=== PATIENT | male | born 1995 | race Caucasian/White ===

== ENCOUNTER 2016-05-02 13:07 | Emergency (ER) | payer BC, OTHER, SELFPAY ==
[2016-05-02] MEDS ORDERED: LIDOCAINE 1% MDV 20ML VIAL As Ordered ONE (15:03)
[2016-05-02] MEDS ORDERED: ONDANSETRON 4 MG ORAL DISINTEGRATING TAB (S0181) As Ordered ONE (15:46)
[2016-05-02] MEDS ORDERED: DERMABOND TOPICAL SKIN ADHESIVE As Ordered ONE (15:55)
--- NOTE | 2016-05-02 16:43 | EDDOCDS ---
Physician Documentation [facility] Name: Sebastien Ocampo Age: 20 yrs Sex: Male : 1995 Arrival Date: 05/02/2016 Time: 13:07 Bed I5 / M5 Private MD: Sebastien Washington Disposition: 05/02/16 16:33 Discharged to Home/Self Care. Impression: Laceration with foreign body of right hand - multiple lacerations involving hand and fingers dorsally. , Other sprain of right index finger, Other sprain of right ring finger. - Condition is Stable. - Discharge Instructions: Dressing Change, Finger Sprain, Sutured Wound Care, [id number]. - Prescriptions for Keflex 500 mg Oral Capsule - take 1 capsule by ORAL route every 8 hours for 10 days; 30 capsule. - Medication Reconciliation, Local Pharmacy Hours form. - Follow up: Morgan Ortiz; When: Call to arrange an appointment; Reason: Recheck today's complaints. Follow up: Emergency Department; When: As needed; Reason: signs of infection. - Problem is new. - Symptoms have improved. - Notes: keep hand clean, dry and covered with dressings. keep fingers in splints. call orthopedics tomorrow for follow up this week. notify them that you need to be seen this week for a wound recheck, joint exam and repeat tendon exam. return to ER if you develop signs of infection. you had a total of 9 sutures placed (3, 2, 4-index, middle, ring) which need removal in 8-10 days. Historical: - Allergies: no known allergies; - Home Meds: 1. none - PMHx: none; - PSHx: none; - Social history: Smoking status: Patient uses tobacco products, light tobacco smoker. No barriers to communication noted, The patient speaks fluent Slovak, Speaks appropriately for age. - Family history: Not pertinent. - : The pt / caregiver states he / she is not on anticoagulants. Home medication list is obtained from the patient. - Exposure Risk Screening:: None identified. Vital Signs: 05/02 13:10 BP 121 / 64; Pulse 90; Resp 18 S; Temp 98.1(O); Pulse Ox 100% on R/A; Weight 65.77 kg / gr2 145 lbs (R); Height 6 ft. 1 in. (185.42 cm) (R); Pain 5/10; 16:27 BP 110 / 55; Pulse 78; Resp 16; Temp 97.7; Pulse Ox 99% ; Pain 5/10; jam1 13:10 Body Mass Index 19.13 (65.77 kg, 185.42 cm) gr2 MDM: 13:49 Wound Care ordered. ar2 13:50 Hand, Complete Ordered. EDMS 14:00 [facility] Payment Agreement was scanned into [employer] and attached to record. mpb 14:03 Financial registration complete. mpb 14:58 Lidocaine 10 mg/mL (1 %) 10 ml Infiltration once; to bedside ordered. ar2 15:48 Ondansetron ODT Oral Disintegrating Tablet 4 mg PO once ordered. jf3 15:54 Dermabond to bedside ordered. ar2 Administered Medications: 15:30 Drug: Lidocaine 10 ml [lidocaine 10 mg/mL (1 %) injection solution (10 mL)] {Note: jf3 given to PA for use at bedside.} Route: Infiltration; 15:48 Drug: Ondansetron ODT 4 mg [ondansetron 4 mg disintegrating tablet (1 tabs)] Route: PO; jf3 16:42 Follow up: Response: Nausea is decreased jf3 Signatures: Dispatcher [employer] EDLA Larisa Lambert RN RN [email or web address] Jorge Lui, PA-C PA-C ar2 Edgar Saravia RN RN jf3 Robert Wolf, Reg Reg mpb The chart was reviewed and I authenticate all verbal orders and agree with the evaluation and treatment provided.Attachments: 14:00 [facility] Payment Agreement mpb MTDD
--- NOTE | 2016-05-02 16:43 | EDDOCDS ---
Nurse's Notes [facility] Name: Sebastien Ocampo Age: 20 yrs Sex: Male : 1995 Arrival Date: 05/02/2016 Time: 13:07 Bed I5 / M5 Private MD: Sebastien Washignton Diagnosis: Laceration with foreign body of right hand-multiple lacerations involving hand and fingers dorsally. ;Other sprain of right index finger;Other sprain of right ring finger Presentation: 05/02 13:17 Presenting complaint: Patient states: Punched a television approximately 1 hour ago. jo3 Multiple lacerations to dorsal aspect of right hand. Adult Sepsis Screening: The patient does not have new or worsening altered mentation. Patient's respiratory rate is less than 22. Systolic blood pressure is greater than 100. Patient has a qSOFA score of 0- Negative Sepsis Screen. Suicide/Homicide risk assessment- the patient denies having any suicidal and/or homicidal ideations and does not present with any other emotional, behavioral or mental health complaints. Status: Patient is not a in service education teacher or dependent. Transition of care: patient was not received from another setting of care. 13:17 Acuity: HUMPHREY Level 3 jo3 13:17 Method Of Arrival: Walkin/Carried/Asstd jo3 Triage Assessment: 13:19 General: Appears in no apparent distress, Behavior is appropriate for age, cooperative. jo3 Pain: Pain currently is 8 out of 10 on a pain scale. HIV screening NA for this visit Offered previously. Neurological: Level of Consciousness is awake, alert, Oriented to person, place, time. Respiratory: Airway is patent Respiratory effort is even, unlabored. Derm: Multiple lacerations to right hand. Historical: - Allergies: no known allergies; - Home Meds: 1. none - PMHx: none; - PSHx: none; - Social history: Smoking status: Patient uses tobacco products, light tobacco smoker. No barriers to communication noted, The patient speaks fluent Slovenian, Speaks appropriately for age. - Family history: Not pertinent. - : The pt / caregiver states he / she is not on anticoagulants. Home medication list is obtained from the patient. - Exposure Risk Screening:: None identified. Screenin:37 Screening information is obtained from the patient. Fall risk: No risks identified. jf3 Assistance ADL's: requires no assistance with activities of daily living. Abuse/DV Screen: The patient / caregiver reports he/she is: not in a situation that causes fear, pain or injury. Nutritional screening: No deficits noted. Advance Directives: Currently, there is no health care proxy. There is no active DNR order. home support is adequate. Assessment: 13:37 General: Appears in no apparent distress, comfortable, Behavior is cooperative. Pain: jf3 Location: right hand Pain currently is 7 out of 10 on a pain scale. Neurological: Level of Consciousness is awake, alert, Oriented to person, place, time. Cardiovascular: Capillary refill < 3 seconds Heart tones S1 S2 present Chest pain is denied. Respiratory: Airway is patent Respiratory effort is even, unlabored, Respiratory pattern is regular, symmetrical, Breath sounds are clear bilaterally. Denies shortness of breath. Derm: Skin is pale, lacerations to right hand not visualized at this time. 14:30 General: Appears in no apparent distress, comfortable, Behavior is cooperative, Pt jf3 resting supine on stretcher with mother at bedside. Respirations easy and unlabored. Will continue to monitor. 15:49 General: Appears ill, Behavior is cooperative, Pt becoming pale and nauseated with jf3 being sutured by provider. Given zofran ODT, tomás donte, and crackers per provider request. 16:30 General: Appears in no apparent distress, comfortable, Behavior is cooperative, Pt jf3 right hand dressed and fingers immobilized using 2x2's with kerlix. Pt tolerated well. Respirations easy and unlabored. Bleeding controlled. Musculoskeletal: Circulation, motion, and sensation intact Capillary refill < 3 seconds Range of motion limited in right hand. 16:41 General: Appears in no apparent distress, comfortable, Behavior is cooperative. Pain: jf3 Location: right hand Pain currently is 5 out of 10 on a pain scale. Neurological: Level of Consciousness is awake, alert, Oriented to person, place, time. Cardiovascular: Capillary refill < 3 seconds Chest pain is denied. Respiratory: Airway is patent Respiratory effort is even, unlabored, Respiratory pattern is regular, symmetrical, Denies shortness of breath. Derm: Skin is pale. Vital Signs: 13:10 BP 121 / 64; Pulse 90; Resp 18 S; Temp 98.1(O); Pulse Ox 100% on R/A; Weight 65.77 kg gr2 (R); Height 6 ft. 1 in. (185.42 cm) (R); Pain 5/10; 16:27 BP 110 / 55; Pulse 78; Resp 16; Temp 97.7; Pulse Ox 99% ; Pain 5/10; jam1 13:10 Body Mass Index 19.13 (65.77 kg, 185.42 cm) gr2 Vitals: 13:10 Log In Time: May 02, 2016 at 13:10. gr2 ED Course: 13:09 Patient visited by Jaz Carter. gr2 13:09 Patient moved to Waiting gr2 13:10 Sebastien Washington MD is Private Physician. gr2 13:11 Patient visited by Jaz Carter. gr2 13:11 Patient moved to Pre RCE gr2 13:18 Triage Initiated jo3 13:20 Patient visited by Larisa Lambert RN. jo3 13:25 Patient moved to I4 / M4 jo3 13:28 Patient moved to I5 / M5 jam1 13:37 The patient / caregiver is instructed regarding the plan of care and ED course. jf3 13:42 Jorge Lui PA-C is PHCP. ar2 13:42 Anam Still MD is Attending Physician. ar2 13:42 Pt greeted and oriented to ED. Patient advised of names of staff involved in care, jam1 location of call galvan, wait times and NPO status. Patient has correct armband on for positive identification. Placed in gown. Bed in low position. Call light in reach. Side rails up X2. Adult w/ patient. Door closed. 13:44 Patient visited by Jorge Lui PA-C. ar2 14:00 [facility] Payment Agreement was scanned into [employer] and attached to record. mpb 14:50 Patient has correct armband on for positive identification. Bed in low position. Call jam1 light in reach. Side rails up X2. Door closed. 15:00 Patient visited by Pratima Brink RN. dls 15:08 Irrigation on right hand irrigated with normal saline Patient tolerated well. jf3 15:42 Patient visited by Edgar Saravia,JANE. jf3 15:49 Patient visited by Edgar Saravia,JANE. jf3 16:00 Assist provider with laceration repair. jf3 16:29 Dressings: Kerlix 4X4s applied to right hand. Aluminum finger splint applied to Patient jf3 with positive distal sensation and brisk distal capillary refill after application. 16:31 Morgan Ortiz is Referral Physician. ar2 16:32 Patient visited by Edgar Saravia,JANE. jf3 16:41 No IV's were initiated during this patient's visit. jf3 Administered Medications: 15:30 Drug: Lidocaine 10 ml [lidocaine 10 mg/mL (1 %) injection solution (10 mL)] {Note: jf3 given to PA for use at bedside.} Route: Infiltration; 15:48 Drug: Ondansetron ODT 4 mg [ondansetron 4 mg disintegrating tablet (1 tabs)] Route: PO; jf3 16:42 Follow up: Response: Nausea is decreased jf3 Order Results: There are currently no results for this order. Outcome: 16:33 Discharge ordered by Provider. ar2 16:42 Discharge Assessment: Patient awake, alert and oriented x 3. No cognitive and/or jf3 functional deficits noted. Patient verbalized understanding of disposition instructions. patient administered narcotics - no. The following High Risk Discharge criteria are identified: None. Discharged to home ambulatory, with parent. Condition: good. Discharge instructions given to patient, parents Instructed on discharge instructions, follow up and referral plans. medication usage, Demonstrated understanding of instructions, medications, Pt was receptive of discharge instructions/ teaching. No special radiology studies were completed. Property :Personal belongings accompany Pt. 16:43 Patient left the ED. jf3 Signatures: Pratima Brink, JANE RN Theresa Vincent, PLANT CUSTODIAN PLANT CUSTODIAN jam1 Larisa Lambert RN RN jo3 Jorge Lui, PA-C PA-C ar2 Jaz Carter gr2 Edgar Saravia,RN RN jf3 Robert Wolf, Reg Reg mpb MTDD
--- NOTE | 2016-05-02 20:33 | REP ---
Four view right hand series 05/02/2016 Location, trauma, multiple lacerations Comparison made with right hand series 07/06/2011 Findings: Subcutaneous air and few metallic radiodensities are seen on the ulnar aspect of the second metacarpal phalangeal joint There are also punctate densities in the subcutaneous tissues overlying the ulnar aspect of the fourth PIP joint with associated soft tissue swelling. Small punctate radiodensity overlies the ulnar aspect of the fifth middle phalanx and also represents interval change. There are two tiny punctate radiodensities along the ulnar aspect of fifth metacarpal phalangeal joint. Tiny punctate radiodensity in the region of triangulo fibrocartilage is unchanged. Impression: Retained radiopaque foreign bodies and/or superimposed debris within the right hand. The subcutaneous air and punctate radiodensities with puncture wound at the ulnar aspect of the second MCP appears acute. Also soft tissue swelling with associated radiodensities overlying the ulnar aspect of the fourth PIP joint may be acute. The two tiny radiodensities within the right fifth digit at the MCP and PIP joints is of indeterminate age and could even represent superimposed debris. No acute fracture. Signed by Clementina Lundberg MD 05/02/2016 08:25 P
--- NOTE | 2016-05-04 17:44 | EDDOCDS ---
Nurse's Notes [facility] Name: Sebastien Ocampo Age: 20 yrs Sex: Male : 1995 Arrival Date: 05/02/2016 Time: 13:07 Bed I5 / M5 Private MD: Sebastien Washington Diagnosis: Laceration with foreign body of right hand-multiple lacerations involving hand and fingers dorsally. ;Other sprain of right index finger;Other sprain of right ring finger Presentation: 05/02 13:17 Presenting complaint: Patient states: Punched a television approximately 1 hour ago. jo3 Multiple lacerations to dorsal aspect of right hand. Adult Sepsis Screening: The patient does not have new or worsening altered mentation. Patient's respiratory rate is less than 22. Systolic blood pressure is greater than 100. Patient has a qSOFA score of 0- Negative Sepsis Screen. Suicide/Homicide risk assessment- the patient denies having any suicidal and/or homicidal ideations and does not present with any other emotional, behavioral or mental health complaints. Status: Patient is not a director outpatient services or dependent. Transition of care: patient was not received from another setting of care. 13:17 Acuity: HUMPHREY Level 3 jo3 13:17 Method Of Arrival: Walkin/Carried/Asstd jo3 Triage Assessment: 13:19 General: Appears in no apparent distress, Behavior is appropriate for age, cooperative. jo3 Pain: Pain currently is 8 out of 10 on a pain scale. HIV screening NA for this visit Offered previously. Neurological: Level of Consciousness is awake, alert, Oriented to person, place, time. Respiratory: Airway is patent Respiratory effort is even, unlabored. Derm: Multiple lacerations to right hand. Historical: - Allergies: no known allergies; - Home Meds: 1. none - PMHx: none; - PSHx: none; - Social history: Smoking status: Patient uses tobacco products, light tobacco smoker. No barriers to communication noted, The patient speaks fluent Nepali, Speaks appropriately for age. - Family history: Not pertinent. - : The pt / caregiver states he / she is not on anticoagulants. Home medication list is obtained from the patient. - Exposure Risk Screening:: None identified. Screenin:37 Screening information is obtained from the patient. Fall risk: No risks identified. jf3 Assistance ADL's: requires no assistance with activities of daily living. Abuse/DV Screen: The patient / caregiver reports he/she is: not in a situation that causes fear, pain or injury. Nutritional screening: No deficits noted. Advance Directives: Currently, there is no health care proxy. There is no active DNR order. home support is adequate. Assessment: 13:37 General: Appears in no apparent distress, comfortable, Behavior is cooperative. Pain: jf3 Location: right hand Pain currently is 7 out of 10 on a pain scale. Neurological: Level of Consciousness is awake, alert, Oriented to person, place, time. Cardiovascular: Capillary refill < 3 seconds Heart tones S1 S2 present Chest pain is denied. Respiratory: Airway is patent Respiratory effort is even, unlabored, Respiratory pattern is regular, symmetrical, Breath sounds are clear bilaterally. Denies shortness of breath. Derm: Skin is pale, lacerations to right hand not visualized at this time. 14:30 General: Appears in no apparent distress, comfortable, Behavior is cooperative, Pt jf3 resting supine on stretcher with mother at bedside. Respirations easy and unlabored. Will continue to monitor. 15:49 General: Appears ill, Behavior is cooperative, Pt becoming pale and nauseated with jf3 being sutured by provider. Given zofran ODT, tomás donte, and crackers per provider request. 16:30 General: Appears in no apparent distress, comfortable, Behavior is cooperative, Pt jf3 right hand dressed and fingers immobilized using 2x2's with kerlix. Pt tolerated well. Respirations easy and unlabored. Bleeding controlled. Musculoskeletal: Circulation, motion, and sensation intact Capillary refill < 3 seconds Range of motion limited in right hand. 16:41 General: Appears in no apparent distress, comfortable, Behavior is cooperative. Pain: jf3 Location: right hand Pain currently is 5 out of 10 on a pain scale. Neurological: Level of Consciousness is awake, alert, Oriented to person, place, time. Cardiovascular: Capillary refill < 3 seconds Chest pain is denied. Respiratory: Airway is patent Respiratory effort is even, unlabored, Respiratory pattern is regular, symmetrical, Denies shortness of breath. Derm: Skin is pale. Vital Signs: 13:10 BP 121 / 64; Pulse 90; Resp 18 S; Temp 98.1(O); Pulse Ox 100% on R/A; Weight 65.77 kg gr2 (R); Height 6 ft. 1 in. (185.42 cm) (R); Pain 5/10; 16:27 BP 110 / 55; Pulse 78; Resp 16; Temp 97.7; Pulse Ox 99% ; Pain 5/10; jam1 13:10 Body Mass Index 19.13 (65.77 kg, 185.42 cm) gr2 Vitals: 13:10 Log In Time: May 02, 2016 at 13:10. gr2 ED Course: 13:09 Patient visited by Jaz Carter. gr2 13:09 Patient moved to Waiting gr2 13:10 Sebastien Washington MD is Private Physician. gr2 13:11 Patient visited by Jaz Carter. gr2 13:11 Patient moved to Pre RCE gr2 13:18 Triage Initiated jo3 13:20 Patient visited by Larisa Lambert RN. jo3 13:25 Patient moved to I4 / M4 jo3 13:28 Patient moved to I5 / M5 jam1 13:37 The patient / caregiver is instructed regarding the plan of care and ED course. jf3 13:42 Jorge Lui PA-C is PHCP. ar2 13:42 Anam Still MD is Attending Physician. ar2 13:42 Pt greeted and oriented to ED. Patient advised of names of staff involved in care, jam1 location of call galvan, wait times and NPO status. Patient has correct armband on for positive identification. Placed in gown. Bed in low position. Call light in reach. Side rails up X2. Adult w/ patient. Door closed. 13:44 Patient visited by Jorge Lui PA-C. ar2 14:00 [facility] Payment Agreement was scanned into [employer] and attached to record. mpb 14:50 Patient has correct armband on for positive identification. Bed in low position. Call jam1 light in reach. Side rails up X2. Door closed. 15:00 Patient visited by Pratima Brink RN. dls 15:08 Irrigation on right hand irrigated with normal saline Patient tolerated well. jf3 15:42 Patient visited by Edgar Saravia,JANE. jf3 15:49 Patient visited by Edgar Saravia,JANE. jf3 16:00 Assist provider with laceration repair. jf3 16:29 Dressings: Kerlix 4X4s applied to right hand. Aluminum finger splint applied to Patient jf3 with positive distal sensation and brisk distal capillary refill after application. 16:31 Morgan Ortiz is Referral Physician. ar2 16:32 Patient visited by Edgar Saravia RN. jf3 16:41 No IV's were initiated during this patient's visit. jf3 20:57 Hand, Complete Returned. EDMS 22:44 T-Sheet-- Draft Copy was scanned into [employer] and attached to record. klr 05/03 11:08 Radiology Report was scanned into [employer] and attached to record. gb Administered Medications: 05/02 15:30 Drug: Lidocaine 10 ml [lidocaine 10 mg/mL (1 %) injection solution (10 mL)] {Note: jf3 given to PA for use at bedside.} Route: Infiltration; 15:48 Drug: Ondansetron ODT 4 mg [ondansetron 4 mg disintegrating tablet (1 tabs)] Route: PO; jf3 16:42 Follow up: Response: Nausea is decreased jf3 Order Results: Radiology Order: Hand, Complete Test: Hand, Complete REASON FOR EXAMINATION: trauma, multiple lacerations; Four view right hand series 05/02/2016; ; Location, trauma, multiple lacerations; ; Comparison made with right hand series 07/06/2011; ; Findings: Subcutaneous air and few metallic radiodensities are seen on the ulnar; aspect of the second metacarpal phalangeal joint; ; There are also punctate densities in the subcutaneous tissues overlying the ulnar; aspect of the fourth PIP joint with associated soft tissue swelling. Small; punctate radiodensity overlies the ulnar aspect of the fifth middle phalanx and; also represents interval change. There are two tiny punctate radiodensities; along the ulnar aspect of fifth metacarpal phalangeal joint.; ; Tiny punctate radiodensity in the region of triangulo fibrocartilage is; unchanged.; ; Impression:; ; Retained radiopaque foreign bodies and/or superimposed debris within the right; hand. The subcutaneous air and punctate radiodensities with puncture wound at; the ulnar aspect of the second MCP appears acute.; ; Also soft tissue swelling with associated radiodensities overlying the ulnar; aspect of the fourth PIP joint may be acute.; ; The two tiny radiodensities within the right fifth digit at the MCP and PIP; joints is of indeterminate age and could even represent superimposed debris.; ; No acute fracture.; ; ; Signed by; Clementina Lundberg MD 05/02/2016 08:25 P; Outcome: 16:33 Discharge ordered by Provider. ar2 16:42 Discharge Assessment: Patient awake, alert and oriented x 3. No cognitive and/or jf3 functional deficits noted. Patient verbalized understanding of disposition instructions. patient administered narcotics - no. The following High Risk Discharge criteria are identified: None. Discharged to home ambulatory, with parent. Condition: good. Discharge instructions given to patient, parents Instructed on discharge instructions, follow up and referral plans. medication usage, Demonstrated understanding of instructions, medications, Pt was receptive of discharge instructions/ teaching. No special radiology studies were completed. Property :Personal belongings accompany Pt. 16:43 Patient left the ED. jf3 Signatures: Dispatcher [employer] EDMS Pratima Brink, JANE RN dls Theresa Ballesteros, MACHINE PRINTER HOSE MACHINE PRINTER HOSE jam1 Hazel Velazquez, Reg Reg gb Larisa Lambert RN RN jo3 Jorge Lui, PA-Bartolo PA-Bartolo ar2 Jaz Carter gr2 Edgar Saravia RN RN jf3 Robert Wolf, Reg Reg mpBhumika oCrrales Chart Complete MTDD
--- NOTE | 2016-05-04 17:44 | EDDOCDS ---
Physician Documentation [facility] Name: Sebastien Ocampo Age: 20 yrs Sex: Male : 1995 Arrival Date: 05/02/2016 Time: 13:07 Bed I5 / M5 Private MD: Sebastien Washington Disposition: 05/02/16 16:33 Discharged to Home/Self Care. Impression: Laceration with foreign body of right hand - multiple lacerations involving hand and fingers dorsally. , Other sprain of right index finger, Other sprain of right ring finger. - Condition is Stable. - Discharge Instructions: Dressing Change, Finger Sprain, Sutured Wound Care, [id number]. - Prescriptions for Keflex 500 mg Oral Capsule - take 1 capsule by ORAL route every 8 hours for 10 days; 30 capsule. - Medication Reconciliation, Local Pharmacy Hours form. - Follow up: Morgan Ortiz; When: Call to arrange an appointment; Reason: Recheck today's complaints. Follow up: Emergency Department; When: As needed; Reason: signs of infection. - Problem is new. - Symptoms have improved. - Notes: keep hand clean, dry and covered with dressings. keep fingers in splints. call orthopedics tomorrow for follow up this week. notify them that you need to be seen this week for a wound recheck, joint exam and repeat tendon exam. return to ER if you develop signs of infection. you had a total of 9 sutures placed (3, 2, 4-index, middle, ring) which need removal in 8-10 days. Historical: - Allergies: no known allergies; - Home Meds: 1. none - PMHx: none; - PSHx: none; - Social history: Smoking status: Patient uses tobacco products, light tobacco smoker. No barriers to communication noted, The patient speaks fluent Sami, Speaks appropriately for age. - Family history: Not pertinent. - : The pt / caregiver states he / she is not on anticoagulants. Home medication list is obtained from the patient. - Exposure Risk Screening:: None identified. Vital Signs: 05/02 13:10 BP 121 / 64; Pulse 90; Resp 18 S; Temp 98.1(O); Pulse Ox 100% on R/A; Weight 65.77 kg / gr2 145 lbs (R); Height 6 ft. 1 in. (185.42 cm) (R); Pain 5/10; 16:27 BP 110 / 55; Pulse 78; Resp 16; Temp 97.7; Pulse Ox 99% ; Pain 5/10; jam1 13:10 Body Mass Index 19.13 (65.77 kg, 185.42 cm) gr2 MDM: 13:49 Wound Care ordered. ar2 13:50 Hand, Complete Ordered. EDMS 14:00 [facility] [place] Agreement was scanned into [employer] and attached to record. mpb 14:03 Financial registration complete. mpb 14:58 Lidocaine 10 mg/mL (1 %) 10 ml Infiltration once; to bedside ordered. ar2 15:48 Ondansetron ODT Oral Disintegrating Tablet 4 mg PO once ordered. jf3 15:54 Dermabond to bedside ordered. ar2 22:44 T-Sheet-- Draft Copy was scanned into [employer] and attached to record. klr 05/03 11:08 Radiology Report was scanned into [employer] and attached to record. gb Administered Medications: 05/02 15:30 Drug: Lidocaine 10 ml [lidocaine 10 mg/mL (1 %) injection solution (10 mL)] {Note: jf3 given to PA for use at bedside.} Route: Infiltration; 15:48 Drug: Ondansetron ODT 4 mg [ondansetron 4 mg disintegrating tablet (1 tabs)] Route: PO; jf3 16:42 Follow up: Response: Nausea is decreased jf3 Signatures: Dispatcher [employer] EDWA Hazel Velazquez, Reg Reg gb Larisa Lambert RN RN jo3 Jorge Lui PA-C PA-C ar2 Edgar Saravia,JANE RN jf3 Robert Wolf, Reg Reg mpb Bhumika Jimenez klr The chart was reviewed and I authenticate all verbal orders and agree with the evaluation and treatment provided.Attachments: 14:00 [facility] Payment Agreement mpb 22:44 T-Sheet-- Draft Copy klr Chart Complete MTDD
--- NOTE | 2016-05-04 17:44 | EDDOCDS ---
Physician Documentation [facility] Name: Sebastien Ocampo Age: 20 yrs Sex: Male : 1995 Arrival Date: 05/02/2016 Time: 13:07 Bed I5 / M5 Private MD: Sebastien Washington Disposition: 05/02/16 16:33 Discharged to Home/Self Care. Impression: Laceration with foreign body of right hand - multiple lacerations involving hand and fingers dorsally. , Other sprain of right index finger, Other sprain of right ring finger. - Condition is Stable. - Discharge Instructions: Dressing Change, Finger Sprain, Sutured Wound Care, [id number]. - Prescriptions for Keflex 500 mg Oral Capsule - take 1 capsule by ORAL route every 8 hours for 10 days; 30 capsule. - Medication Reconciliation, Local Pharmacy Hours form. - Follow up: Morgan Ortiz; When: Call to arrange an appointment; Reason: Recheck today's complaints. Follow up: Emergency Department; When: As needed; Reason: signs of infection. - Problem is new. - Symptoms have improved. - Notes: keep hand clean, dry and covered with dressings. keep fingers in splints. call orthopedics tomorrow for follow up this week. notify them that you need to be seen this week for a wound recheck, joint exam and repeat tendon exam. return to ER if you develop signs of infection. you had a total of 9 sutures placed (3, 2, 4-index, middle, ring) which need removal in 8-10 days. Historical: - Allergies: no known allergies; - Home Meds: 1. none - PMHx: none; - PSHx: none; - Social history: Smoking status: Patient uses tobacco products, light tobacco smoker. No barriers to communication noted, The patient speaks fluent Czech, Speaks appropriately for age. - Family history: Not pertinent. - : The pt / caregiver states he / she is not on anticoagulants. Home medication list is obtained from the patient. - Exposure Risk Screening:: None identified. Vital Signs: 05/02 13:10 BP 121 / 64; Pulse 90; Resp 18 S; Temp 98.1(O); Pulse Ox 100% on R/A; Weight 65.77 kg / gr2 145 lbs (R); Height 6 ft. 1 in. (185.42 cm) (R); Pain 5/10; 16:27 BP 110 / 55; Pulse 78; Resp 16; Temp 97.7; Pulse Ox 99% ; Pain 5/10; jam1 13:10 Body Mass Index 19.13 (65.77 kg, 185.42 cm) gr2 MDM: 13:49 Wound Care ordered. ar2 13:50 Hand, Complete Ordered. EDMS 14:00 [facility] Payment Agreement was scanned into [employer] and attached to record. mpb 14:03 Financial registration complete. mpb 14:58 Lidocaine 10 mg/mL (1 %) 10 ml Infiltration once; to bedside ordered. ar2 15:48 Ondansetron ODT Oral Disintegrating Tablet 4 mg PO once ordered. jf3 15:54 Dermabond to bedside ordered. ar2 22:44 T-Sheet-- Draft Copy was scanned into [employer] and attached to record. klr 05/03 11:08 Radiology Report was scanned into [employer] and attached to record. gb Administered Medications: 05/02 15:30 Drug: Lidocaine 10 ml [lidocaine 10 mg/mL (1 %) injection solution (10 mL)] {Note: jf3 given to PA for use at bedside.} Route: Infiltration; 15:48 Drug: Ondansetron ODT 4 mg [ondansetron 4 mg disintegrating tablet (1 tabs)] Route: PO; jf3 16:42 Follow up: Response: Nausea is decreased jf3 Signatures: Dispatcher [employer] EDPR Hazel Velazquez, Reg Reg gb Larisa Lambert RN RN jo3 Jorge Lui PA-C PA-C ar2 Edgar Saravia,JANE RN jf3 Robert Wolf, Reg Reg mpb Bhumika Jimenez klr The chart was reviewed and I authenticate all verbal orders and agree with the evaluation and treatment provided.Attachments: 14:00 [facility] Payment Agreement mpb 22:44 T-Sheet-- Draft Copy klr Chart Complete MTDD
== END 2016-05-02 16:43 | disposition home or self-care (01) ==
LOC: M ED 13:07
DX: S61.220A Laceration with foreign body of right index finger without damage to nail, initial encounter (principal); S61.222A Laceration with foreign body of right middle finger without damage to nail, initial encounter; S61.224A Laceration with foreign body of right ring finger without damage to nail, initial encounter; S63.610A Unspecified sprain of right index finger, initial encounter; S63.614A Unspecified sprain of right ring finger, initial encounter; F17.210 Nicotine dependence, cigarettes, uncomplicated; W25.XXXA Contact with sharp glass, initial encounter; Y92.019 Unspecified place in single-family (private) house as the place of occurrence of the external cause; Y93.89 Activity, other specified; Y99.9 Unspecified external cause status

== ENCOUNTER → 2017-10-18 | Outpatient (CLI) | payer MEDICAID, SELFPAY | LOC: M OUTALCOH 07:57 | DX: F11.20 Opioid dependence, uncomplicated (principal) ==

== ENCOUNTER 2017-10-24 16:00 | Outpatient (RCR) | payer SELFPAY | END 2017-11-08 | LOC: M OUTALCOH 16:00 | DX: F11.20 Opioid dependence, uncomplicated (principal); F12.20 Cannabis dependence, uncomplicated; F17.200 Nicotine dependence, unspecified, uncomplicated ==

== ENCOUNTER 2017-12-14 16:00 | Outpatient (RCR) | payer MEDICAID, SELFPAY | END 2018-01-08 | LOC: M OUTALCOH 12-16 15:00 | DX: F11.20 Opioid dependence, uncomplicated (principal); F12.20 Cannabis dependence, uncomplicated; F17.200 Nicotine dependence, unspecified, uncomplicated ==

== ENCOUNTER → 2017-12-28 | Outpatient (REF) | payer OTHER ==
[2017-12-28 13:24] LABS: BASO % 0.6 % (0.0-1.0); EOS # 0.3 10^3/uL (0.0-0.50); EOS % 4.1 % (0.0-3.0); HEMATOCRIT 46.4 % (42.0-52.0); HEMOGLOBIN 15.3 g/dl (13.5-17.5); IMMATURE GRANULOCYTE % 0.2 % (0-3.0); LYMPH # 2.7 10^3/uL (1.5-6.5); LYMPH % 41.3 % (24.0-44.0); MEAN CORPUSCULAR HEMOGLOBIN 29.9 pg (27.0-33.0); MEAN CORPUSCULAR VOLUME 90.8 fl (80.0-96.0); MONO # 0.5 10^3/uL (0.0-0.8); MONO % 7.4 % (0.0-5.0); NEUTROPHILS # 3.1 10^3/uL (1.8-7.7); NEUTROPHILS % 46.4 % (36.0-66.0); PLATELET COUNT, AUTOMATED 205 10^3/uL (150-450); RED BLOOD COUNT 5.11 10^6/uL (4.30-6.10); WHITE BLOOD COUNT 6.6 10^3/uL (4.0-10.0)
[2017-12-28 14:57] LABS: ALBUMIN 4.8 GM/DL (3.2-5.2); ALKALINE PHOSPHATASE 82 U/L (45-117); ALT/SGPT 15 U/L (12-78); ANION GAP 8 MEQ/L (8-16); AST/SGOT 11 U/L (7-37); BILIRUBIN,TOTAL 0.3 MG/DL (0.2-1.0); BLOOD UREA NITROGEN 13 MG/DL (7-18); CALCIUM LEVEL 9.1 MG/DL (8.5-10.1); CARBON DIOXIDE LEVEL 27 MEQ/L (21-32); CHLORIDE LEVEL 108 MEQ/L (98-107); CHOLESTEROL LEVEL 110 MG/DL (<200); FERRITIN 23 NG/ML (26-388); GLOMERULAR FILTRATION RATE > 60.0 (>60); GLUCOSE, FASTING 84 MG/DL (70-100); HDL CHOLESTEROL 47 MG/DL (>40); IRON (FE) 63 UG/DL (65-175); LDL CHOLESTEROL 49 MG/DL (<100); NON-HDL-C 63 MG/DL; PERCENT SATURATION 16.7 % (19.7-50.0); POTASSIUM SERUM 4.2 MEQ/L (3.5-5.1); SODIUM LEVEL 143 MEQ/L (136-145); TOTAL IRON BINDING CAPACITY 378 UG/DL (250-450); TRIGLYCERIDES LEVEL 70 MG/DL (<150)
== END ==
LOC: M SFHCPLAZ 11:53
DX: K92.1 Melena (principal); D64.9 Anemia, unspecified; Z13.220 Encounter for screening for lipoid disorders

== ENCOUNTER → 2018-01-06 | Outpatient (CLI) | payer OTHER | LOC: M RAD 08:43 | DX: K82.0 Obstruction of gallbladder (principal); Z87.442 Personal history of urinary calculi | CPT/HCPCS: 74176 ==

== ENCOUNTER 2018-01-09 14:11 | Outpatient (RCR) | payer MEDICAID, OTHER | END 2018-02-08 | LOC: M OUTALCOH 01-11 15:00 | DX: F11.20 Opioid dependence, uncomplicated (principal); F12.20 Cannabis dependence, uncomplicated; F17.200 Nicotine dependence, unspecified, uncomplicated ==

== ENCOUNTER → 2018-01-12 | Outpatient (CLI) | payer OTHER ==
[~2018-01-12] MED LIST: E-Z-GAS II EFFERVESCENT PACKET (SODIUM BICARB./CITRIC ACID/SIMETHICONE) As Ordered; E-Z-HD 98% w/w 340GM SUSP BTL As Ordered; E-Z-PAQUE 96% w/w SUSP 176GM BTL As Ordered
== END ==
LOC: M RAD 10:17
DX: K92.1 Melena (principal)
CPT/HCPCS: 74241

== ENCOUNTER → 2018-01-30 | Outpatient (REF) | payer OTHER ==
[2018-01-30 19:08] LABS: IRON (FE) 85 UG/DL (65-175)
[2018-01-30 19:08] LABS: FERRITIN 61 NG/ML (26-388)
[2018-02-02 17:40] LABS: H PYLORI SERUM QUANT IGA <9.0 units (0.0-8.9)
== END ==
LOC: M SFHCPLAZ 15:32
DX: D64.9 Anemia, unspecified (principal); K92.1 Melena
CPT/HCPCS: 83540

== ENCOUNTER 2018-02-09 16:35 | Outpatient (RCR) | payer OTHER | END 2018-03-10 | LOC: M OUTALCOH 02-13 14:00 | DX: F11.20 Opioid dependence, uncomplicated (principal); F12.20 Cannabis dependence, uncomplicated; F17.200 Nicotine dependence, unspecified, uncomplicated ==

== ENCOUNTER → 2018-04-10 | Outpatient (RCR) | payer MEDICAID | LOC: M OUTALCOH 03-23 14:12 | PROVIDERS: ATTEND Psychiatry & Neurology Psychiatry | DX: F11.20 Opioid dependence, uncomplicated (principal); F12.20 Cannabis dependence, uncomplicated; F17.200 Nicotine dependence, unspecified, uncomplicated ==

== ENCOUNTER 2018-05-08 16:00 | Outpatient (RCR) | payer MEDICAID ==
[2018-05-09] MEDS ORDERED: FLUTISP (16:54)
[2018-05-09] MEDS ORDERED: SUBO8MIS SL (16:54)
[2018-05-09] MEDS ORDERED: NICO21DI6 TOP (17:03)
== END 2018-05-11 ==
LOC: M OUTALCOH 16:00
PROVIDERS: ATTEND Psychiatry & Neurology Psychiatry
DX: F11.20 Opioid dependence, uncomplicated (principal); F12.20 Cannabis dependence, uncomplicated; F17.200 Nicotine dependence, unspecified, uncomplicated

== ENCOUNTER 2018-05-23 11:27 | Day surgery (SDC) | payer OTHER ==
[~2018-05-23] VITALS: Ht 167.6 cm; Wt 75.7 kg
[~2018-05-23 11:27] MED LIST changes: -E-Z-GAS II EFFERVESCENT PACKET (SODIUM BICARB./CITRIC ACID/SIMETHICONE) As Ordered; -E-Z-HD 98% w/w 340GM SUSP BTL As Ordered; -E-Z-PAQUE 96% w/w SUSP 176GM BTL As Ordered; +FLUTISP; +LIDOCAINE 2% INJ 100 MG/5 ML SDV (FOR ANES.) As Ordered ONE; +NICO21DI6 TOP; +NS 1,000 ML IV ONE; +SUBO8MIS SL
[2018-05-23] MEDS ORDERED: PROPOFOL 200 MG/20 ML VIAL As Ordered ONE (11:36)
--- NOTE | 2018-05-23 13:26 | ROOR ---
Patient Name: Sebastien Ocampo Procedure Date: 05/23/2018 12:46 PM Date of : 1995 Age: 22 Room: [facility] Gender: Male Note Status: Finalized Procedure: Upper GI endoscopy Indications: Iron deficiency anemia, Heme positive stool, Melena Providers: Morgan Barragan MD Referring MD: [place] RODRIGUEZ MD Requesting Provider: Medicines: Monitored Anesthesia Care Complications: No immediate complications. Procedure: Pre-Anesthesia Assessment: - Prior to the procedure, a History and Physical was performed, and patient medications and allergies were reviewed. The patient is competent. The risks and benefits of the procedure and the sedation options and risks were discussed with the patient. All questions were answered and informed consent was obtained. Patient identification and proposed procedure were verified by the physician, the nurse and the anesthesiologist in the procedure room. Mental Status Examination: alert and oriented. Airway Examination: normal oropharyngeal airway and neck mobility. Respiratory Examination: clear to auscultation. CV Examination: normal. Prophylactic Antibiotics: The patient does not require prophylactic antibiotics. Prior Anticoagulants: The patient has taken no previous anticoagulant or antiplatelet agents. ASA Grade Assessment: I - A normal, healthy patient. After reviewing the risks and benefits, the patient was deemed in satisfactory condition to undergo the procedure. The anesthesia plan was to use monitored anesthesia care (MAC). Immediately prior to administration of medications, the patient was re-assessed for adequacy to receive sedatives. The heart rate, respiratory rate, oxygen saturations, blood pressure, adequacy of pulmonary ventilation, and response to care were monitored throughout the procedure. The physical status of the patient was re-assessed after the procedure. The Endoscope was introduced through the mouth, and advanced to the second part of duodenum. The upper GI endoscopy was accomplished without difficulty. The patient tolerated the procedure well. Findings: The examined esophagus was normal. The Z-line was regular and was found 45 cm from the incisors. Patchy mild inflammation characterized by erythema and granularity was found in the gastric antrum. Biopsies were taken with a cold forceps for Helicobacter pylori testing. Verification of patient identification for the specimen was done by the physician and nurse using the patient's name, date and medical record number. Estimated blood loss was minimal. The duodenal bulb and second portion of the duodenum were normal. Biopsies for histology were taken with a cold forceps for evaluation of celiac disease. Impression: - Normal esophagus. - Z-line regular, 45 cm from the incisors. - Gastritis. Biopsied. - Normal duodenal bulb and second portion of the duodenum. Biopsied. Recommendation: - Patient has a contact number available for emergencies. The signs and symptoms of potential delayed complications were discussed with the patient. Return to normal activities tomorrow. Written discharge instructions were provided to the patient. - Resume previous diet. - Continue present medications. - Check hemoglobin and hematocrit and Iron studies in 1 month. - Return to GI clinic in [facility] (address [address], [place] [address]) in 4 -- 6 weeks. Please call GI clinic @ [phone] for apppointment date and time. - Return to primary care physician. Morgan Barragan MD Morgan Barragan MD 05/23/2018 1:26:05 PM This report has been signed electronically. Number of Addenda: 0 Note Initiated On: 05/23/2018 12:46 PM Estimated Blood Loss: Estimated blood loss was minimal.
--- NOTE | 2018-05-23 13:52 | ROOR ---
Patient Name: Sebastien Ocampo Procedure Date: 05/23/2018 12:47 PM Date of : 1995 Age: 22 Room: [facility] Gender: Male Note Status: Finalized Procedure: Colonoscopy Indications: Heme positive stool, Iron deficiency anemia Providers: Morgan Barragan MD Referring MD: [place] RODRIGUEZ MD Requesting Provider: Medicines: Monitored Anesthesia Care Complications: No immediate complications. Procedure: Pre-Anesthesia Assessment: - Prior to the procedure, a History and Physical was performed, and patient medications and allergies were reviewed. The patient is competent. The risks and benefits of the procedure and the sedation options and risks were discussed with the patient. All questions were answered and informed consent was obtained. Patient identification and proposed procedure were verified by the physician, the nurse and the anesthesiologist in the procedure room. Mental Status Examination: alert and oriented. Airway Examination: normal oropharyngeal airway and neck mobility. Respiratory Examination: clear to auscultation. CV Examination: normal. Prophylactic Antibiotics: The patient does not require prophylactic antibiotics. Prior Anticoagulants: The patient has taken no previous anticoagulant or antiplatelet agents. ASA Grade Assessment: II - A patient with mild systemic disease. After reviewing the risks and benefits, the patient was deemed in satisfactory condition to undergo the procedure. The anesthesia plan was to use monitored anesthesia care (MAC). Immediately prior to administration of medications, the patient was re-assessed for adequacy to receive sedatives. The heart rate, respiratory rate, oxygen saturations, blood pressure, adequacy of pulmonary ventilation, and response to care were monitored throughout the procedure. The physical status of the patient was re-assessed after the procedure. The Colonoscope was introduced through the anus and advanced to the terminal ileum, with identification of the appendiceal orifice and IC valve. The colonoscopy was performed without difficulty. The patient tolerated the procedure well. The quality of the bowel preparation was poor. The terminal ileum, ileocecal valve, appendiceal orifice, and rectum were photographed. Scope insertion time was 5 minutes. Scope withdrawal time was 6 minutes. The total duration of the procedure was 11 minutes. Findings: The perianal and digital rectal examinations were normal. The terminal ileum appeared normal. A large amount of semi-solid stool was found from rectum to cecum, precluding visualization. Lavage of the area was performed using a large amount of sterile water, resulting in incomplete clearance with continued poor visualization. There is no endoscopic evidence of mass or stricture in the entire colon. The retroflexed view of the distal rectum and anal verge was normal and showed no anal or rectal abnormalities. Impression: - Preparation of the colon was poor. - The examined portion of the ileum was normal. - Stool from rectum to cecum. - The distal rectum and anal verge are normal on retroflexion view. - No specimens collected. Recommendation: - Patient has a contact number available for emergencies. The signs and symptoms of potential delayed complications were discussed with the patient. Return to normal activities tomorrow. Written discharge instructions were provided to the patient. - Resume previous diet. - Continue present medications. - Check hemoglobin and hematocrit along with iron studies in 1 month. - Return to GI clinic in [facility] (address [address], [address] [address]) in 4 -- 6 weeks. Please call GI clinic @ [phone] for apppointment date and time. - Return to primary care physician. Morgan Barragan MD Morgan Barragan MD 05/23/2018 1:51:49 PM This report has been signed electronically. Number of Addenda: 0 Note Initiated On: 05/23/2018 12:47 PM Estimated Blood Loss: Estimated blood loss: none.
[2018-05-23 14:05] VITALS: BP 120/65
== END 2018-05-23 14:07 | disposition home or self-care (01) ==
LOC: M OPP 11:27
PROVIDERS: ATTEND Internal Medicine Gastroenterology
DX: D50.9 Iron deficiency anemia, unspecified (principal); K29.70 Gastritis, unspecified, without bleeding; K92.1 Melena; F17.210 Nicotine dependence, cigarettes, uncomplicated

== ENCOUNTER → 2018-05-25 | Outpatient (CLI) | payer OTHER ==
[~2018-05-25] MED LIST changes: -LIDOCAINE 2% INJ 100 MG/5 ML SDV (FOR ANES.) As Ordered ONE; -NS 1,000 ML IV ONE
--- NOTE | 2018-05-25 09:41 | REP ---
ULTRASOUND LEFT NECK SOFT TISSUES: Real-time sonographic evaluation of the left neck soft tissues performed at the site of palpable abnormality posterolaterally. The area corresponds to three non-enlarged lymph nodes with small amount of fat in their hilar regions. These measure 9 x 2 x 10 mm, 7 x 2 x 7 mm, and 9 x 3 x 4 mm. IMPRESSION: Three normal appearing lymph nodes correspond to the palpable abnormality in the posterolateral soft tissues of the left neck. Electronically Signed by Sammy Saenz MD 05/25/2018 09:56 A
== END ==
LOC: M RAD 08:21
PROVIDERS: ATTEND Family Medicine Addiction Medicine
DX: M79.9 Soft tissue disorder, unspecified (principal)

== ENCOUNTER 2018-05-26 10:58 | Outpatient (RCR) | payer MEDICAID | END 2018-06-08 | LOC: M OUTALCOH 10:58 | PROVIDERS: ATTEND Psychiatry & Neurology Psychiatry | DX: F11.20 Opioid dependence, uncomplicated (principal); F12.20 Cannabis dependence, uncomplicated; F17.200 Nicotine dependence, unspecified, uncomplicated ==

== ENCOUNTER → 2018-10-06 | Outpatient (REF) | payer OTHER, MEDICAID ==
[2018-10-06 18:00] LABS: BASO % 0.5 % (0.0-1.0); EOS # 0.1 10^3/uL (0.0-0.50); EOS % 2.3 % (0.0-3.0); HEMATOCRIT 41.6 % (42.0-52.0); HEMOGLOBIN 13.5 g/dl (13.5-17.5); LYMPH # 2.4 10^3/uL (1.5-6.5); LYMPH % 54.5 % (24.0-44.0); MEAN CORPUSCULAR HEMOGLOBIN 29.9 pg (27.0-33.0); MEAN CORPUSCULAR HGB CONC 32.5 g/dl (32.0-36.5); MEAN CORPUSCULAR VOLUME 92.2 fl (80.0-96.0); MONO # 0.3 10^3/uL (0.0-0.8); NEUTROPHILS # 1.5 10^3/uL (1.8-7.7); NEUTROPHILS % 35.5 % (36.0-66.0); PLATELET COUNT, AUTOMATED 190 10^3/uL (150-450); RED BLOOD COUNT 4.51 10^6/uL (4.30-6.10); WHITE BLOOD COUNT 4.3 10^3/uL (4.0-10.0)
[2018-10-06 18:06] LABS: ALBUMIN 4.6 GM/DL (3.2-5.2); ALT/SGPT 15 U/L (12-78); BLOOD UREA NITROGEN 14 MG/DL (7-18); CALCIUM LEVEL 9.4 MG/DL (8.5-10.1); CARBON DIOXIDE LEVEL 29 MEQ/L (21-32); CHLORIDE LEVEL 104 MEQ/L (98-107); CHOLESTEROL LEVEL 102 MG/DL (<200); CHOLESTEROL RISK RATIO 1.961 (<5); CREATININE FOR GFR 0.84 MG/DL (0.70-1.30); FERRITIN 65 NG/ML (26-388); GLOMERULAR FILTRATION RATE > 60.0 (>60); GLUCOSE, FASTING 91 MG/DL (70-100); HDL CHOLESTEROL 52 MG/DL (>40); IRON (FE) 93 UG/DL (65-175); LDL CHOLESTEROL 43 MG/DL (<100); NON-HDL-C 50 MG/DL; POTASSIUM SERUM 3.8 MEQ/L (3.5-5.1); SODIUM LEVEL 139 MEQ/L (136-145); THYROID STIMULATING HORMONE 0.753 uIU/ML (0.358-3.740); TOTAL PROTEIN 7.7 GM/DL (6.4-8.2); TRIGLYCERIDES LEVEL 34 MG/DL (<150)
[2018-10-06 18:47] LABS: HIV 1&2 SCREEN CENTAUR NEGATIVE (NEGATIVE)
[2018-10-09 10:13] LABS: HEPATITIS B SURFACE ANTIBODY NEGATIVE (POSITIVE)
[2018-10-09 10:24] LABS: HEPATITIS B SURFACE ANTIGEN NEGATIVE (NEGATIVE)
[2018-10-09 10:51] LABS: HEPATITIS C VIRUS ABY INDEX 0.1 INDEX (<0.8)
== END ==
LOC: M LAB REF 16:33
PROVIDERS: ATTEND Family Medicine Addiction Medicine
DX: Z00.00 Encounter for general adult medical examination without abnormal findings (principal); R53.83 Other fatigue

== ENCOUNTER 2019-07-09 13:26 | Emergency (ER) | payer MEDICAID, OTHER ==
[~2019-07-09] VITALS: Ht 185.4 cm; Wt 68.8 kg
[2019-07-09 13:28] VITALS: BP 130/79
[2019-07-09] MEDS ORDERED: BUPRENORPHINE/NALOXONE 8-2MG SUBLINGUAL TABLET(SUBOXONE) PO ONE (14:30)
[2019-07-09] MEDS ORDERED: BUPRENORPHINE/NALOXONE 2-0.5MG SUBLINGUAL TABLET(SUBOXONE) PO ONE (15:00)
== END 2019-07-09 14:31 | disposition home or self-care (01) ==
LOC: M ED 13:26
DX: Z76.0 Encounter for issue of repeat prescription (principal); Z79.891 Long term (current) use of opiate analgesic

== ENCOUNTER → 2019-09-09 | Outpatient (REF) | payer OTHER | LOC: M LAB REF 21:27 | PROVIDERS: ATTEND Physician Assistant Medical | DX: J02.9 Acute pharyngitis, unspecified (principal) ==

== ENCOUNTER 2021-10-03 18:02 | Emergency (ER) | payer OTHER ==
[~2021-10-03] VITALS: Ht 185.4 cm; Wt 76.9 kg
[2021-10-03 21:11] VITALS: BP 122/80
== END 2021-10-03 21:16 | disposition home or self-care (01) ==
LOC: M ED 18:02
DX: R06.00 Dyspnea, unspecified (principal); B34.8 Other viral infections of unspecified site

== ENCOUNTER → 2024-03-07 | Outpatient (CLI) | payer OTHER | LOC: M RAD 10:54 | PROVIDERS: ATTEND Chiropractor | DX: M50.33 Other cervical disc degeneration, cervicothoracic region (principal); M51.34 Other intervertebral disc degeneration, thoracic region; M99.02 Segmental and somatic dysfunction of thoracic region; M99.03 Segmental and somatic dysfunction of lumbar region; M99.04 Segmental and somatic dysfunction of sacral region; M99.01 Segmental and somatic dysfunction of cervical region ==